=== PATIENT | female | born 1955 | race Hispanic/Latino ===

== ENCOUNTER 2017-06-09 06:44 | Day surgery (SDC) | payer OTHER ==
[~2017-06-09 06:44] MED LIST: SIMV20TA6 PO; SODIUM CHLORIDE 0.9% 1000ML 1,000 ML IV ONE
[2017-06-09 06:55] VITALS: BP 125/58
[2017-06-09] MEDS ORDERED: TOPI25TA48 PO (07:28)
[2017-06-09] MEDS ORDERED: FENO160T16 PO (07:28)
[2017-06-09] MEDS ORDERED: PROPOFOL 10 MG/ML 20ML VIAL IV ONE (08:39)
[2017-06-09 09:02] VITALS: BP 76/31
== END 2017-06-09 09:25 | disposition home or self-care (01) ==
LOC: DAH 06:44
PROVIDERS: ATTEND Internal Medicine Gastroenterology
DX: Z12.11 Encounter for screening for malignant neoplasm of colon (principal); D12.2 Benign neoplasm of ascending colon
CPT/HCPCS: 45380; 88305; A4606; J2704; J7030